=== PATIENT | female | born 1960 | race Caucasian/White ===

== ENCOUNTER 2023-03-28 08:51 | Outpatient (CLI) | payer BC ==
[~2023-03-28 08:51] MED LIST: JUICE PLUS PO; [UNRECOGNIZED DRUG - OTHER] PO
== END 2023-03-28 23:59 | disposition home or self-care (01) ==
LOC: RAD 08:51
PROVIDERS: ATTEND Student in an Organized Health Care Education/Training Program
DX: R31.9 Hematuria, unspecified (principal)
CPT/HCPCS: 76770